=== PATIENT | male | born 1995 | race Caucasian/White ===

== ENCOUNTER 2024-01-28 12:54 | Emergency (ER) | payer MEDICAID ==
[~2024-01-28] VITALS: Ht 182.9 cm; Wt 97.1 kg
[2024-01-28 13:18] VITALS: TEMP 96.8; O2SAT 99
[2024-01-28] MEDS ORDERED: IBUP-1525 MT (14:41)
[2024-01-28] MEDS ORDERED: TOPUD MT (14:41)
[2024-01-28 14:45] VITALS: BP 124/74; PULSE 53; RESP 14
[2024-01-28] MEDS: ACETAMINOPHEN 325MG TABLET PO ONE (14:45)
[2024-01-28] MEDS: IBUPROFEN 800MG TABLET PO ONE (14:45)
== END 2024-01-28 16:49 | disposition home or self-care (01) ==
LOC: ER 13:04
DX: S62.394A Other fracture of fourth metacarpal bone, right hand, initial encounter for closed fracture (principal); W18.39XA Other fall on same level, initial encounter; Y93.89 Activity, other specified; Y92.89 Other specified places as the place of occurrence of the external cause; Y99.8 Other external cause status
CPT/HCPCS: 73130; 99283